=== PATIENT | male | born 1990 | race Caucasian/White ===

== ENCOUNTER 2025-02-08 08:59 | Emergency (ER) | payer OTHER, SELFPAY ==
[2025-02-08 09:13] VITALS: BP 168/128; PULSE 108; RESP 32; TEMP 36.6; O2SAT 94; BMI 48.8
--- NOTE | 2025-02-08 09:30 | CRLHL7_ITS ---
For Patients: As a result of the Century Cures Act, medical imaging exams and procedure reports are released immediately into your electronic medical record. You may view this report before your referring provider. If you have questions, please contact your health care provider. INDICATION: Groin infection, evaluate for abdominal wall cellulitis or abscess. TECHNIQUE: Multiplanar CT examination of the abdomen and pelvis was performed after the administration of 150 mL Isovue 370 intravenous contrast. COMPARISON: None. FINDINGS: Limited evaluation due to photopenic artifact from patient body habitus. Lower chest: No focal consolidation. Cardiomegaly. No large pneumothorax. Small right pleural effusion. Subsegmental dependent atelectasis. Mild pulmonary vascular congestion and interstitial edema. Liver: Probable hepatic steatosis. Hepatomegaly. Gallbladder: Unremarkable. Biliary: Unremarkable. Pancreas: Within normal limits. Spleen: Unremarkable. Adrenal glands: Unremarkable. Renal/ureters/bladder: Normal in size and symmetrically enhancing. No obstructive uropathy. No hydronephrosis or obstructive urinary calculi. No suspicious renal masses. The ureters appear unremarkable. The bladder is within normal limits. Pelvis: Unremarkable prostate. Gastrointestinal: No bowel wall thickening or bowel obstruction. Normal appendix. No significant colonic diverticulosis. Vasculature: No aortic aneurysm. The portal vein remains patent. No significant atherosclerotic calcifications. Lymph nodes: Prominent bilateral inguinal lymph nodes appear morphologically normal, likely reactive. Peritoneum: No free fluid or pneumoperitoneum. No drainable fluid collections. Abdominal wall/soft tissues: Moderate diffuse subcutaneous fat stranding without loculated drainable fluid collections identified to suggest abdominal wall abscess. No subcutaneous emphysema. Bones: No acute osseous abnormalities. Multilevel degenerative changes of the visualized thoracolumbar spine. IMPRESSION: Limited evaluation due to patient body habitus. 1. Moderate diffuse subcutaneous fat stranding involving the anterior abdominal wall, nonspecific but compatible with cellulitis. 2. No loculated fluid collections to suggest abdominal wall abscess. No subcutaneous emphysema suggestive of Sebas`s gangrene. 3. Cardiomegaly with mild pulmonary edema and a small right-sided pleural effusion. 4. Diffuse hepatic steatosis and hepatomegaly. Please note that all CT scans at this facility use dose modulation, iterative reconstruction, and/or weight-based dosing when appropriate to reduce radiation dose to as low as reasonably achievable. Dictated by Jamarcus Souza MD @ 02/08/2025 11:39:26 AM (Electronically Signed)
--- OUTSIDE RECORDS SUMMARY | 2025-02-08 09:56 | XMS_ITS | Clinical Summary ---
Author Organization [employer] [facility] Address [address] [place] [address] Care Team Providers Care Solution Engineer Name Role Phone , [facility] Unavailable [phone] Pcp, No Primary Care Provider Unavailabl e Allergies No known active allergies Medications Blood Pressure Monitor (BLOOD PRESSURE KIT)Indications:Angel rderline systolic HTN 1 Device 0 06/02/2013 Active Active Problems Problem Noted Date Diagnosed Date Hypertension 06/28/2013 Adult BMI 45.0-49.9 kg/sq m 04/27/2013 Tobacco dependence 04/27/2013 Borderline systolic HTN 04/27/2013 Asperger's disorder 03/18/2011 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) 12/15/19 07 Posttraumatic stress disorder 12/15/2006 Immunizations Immunization Administration Dates Next Due DTaP 05/24/1997,07/17/1993,06/17/1992 ,04/19/1992,02/09/1992 Hepatitis B (Peds) 06/17/1992,04/19/1992, 992 MMR 05/24/1997,04/14/1993 Oral Polio Vaccine 02/14/1997,11/24/1996, 993,04/17/1992 Tdap 01/23/2016,11/19/2004 Varicella Vaccine 11/19/2004,11/19/2004 Social History Tobacco Use Types Packs/Day Years Used Date Smoking Tobacco: Some Days Smokeless Tobacco: Never Comments:Occasionally with f riends Alcohol Use Standard Drinks/Week Comments No 0 (1 standard drink = 0.6 oz pur e alcohol) Sex and Gender Information Value Date Recorded Sex Assigned at Not on file Legal Sex Male 7:07 AM [employer] Gender Identity Not on file Sexual Orientation Not on file Obstetrics History Last Filed Vital Signs Vital Sign Reading Time Taken Comments Blood Pressure 178/104 01/23/2016 1:37 PM CDT Pulse 72 01/23/2016 1:37 PM CDT Temperature 36.3 C (97.4 F) 07/26/2013 9:11 AM CDT Respiratory Rate 22 07/26/2013 9:11 AM CDT Oxygen Saturation - - Inhaled Oxygen Concentration - - Weight 128.6 kg (283 lb 9.6 oz) 01/23/2016 1:37 PM CDT Height 188 cm (6' 2.02) 01/23/2016 1:37 PM CDT Body Mass Index 36.4 01/23/2016 1:37 PM CDT Plan of Treatment Health Maintenance Due Date Last Done Comments HIV for age 15-65 2006 Hepatitis C screening for age 18-79 2009 Pneumococcal series for age 6-49 (1 of 2 - PCV) 2010 BMI (ht and wt on same day) for age 18+ 01/22/2017 01/23/2016 Depression screening for age 12+ 01/22/2017 01/23/20 16 COVID-19 vaccine series ( season) 2024 12/30/2021, 04/09/2021, 03/19/2021 Influenza Vaccine (Season Ended) 2025 Tetanus booster 01/22/2026 01/23/2016, 11/19/2004 Tdap Completed 01/23/2016, 11/19/2004 Goals Goal Patient Goal Type Associated Problems Recent Progress Patient-Stated? Author BLOOD PRESSURE - MAINTAINS BP less than 140/90 Blood Pressure No Mark Madrid MD Insurance [facility] Care Teams Solution Engineer Relationship Specialty Start Date End Date Pcp, No . PCP - General 01/07/24 , [facility] [address] [place] [address] 12/04/14
--- OUTSIDE RECORDS SUMMARY | 2025-02-08 09:56 | XMS_ITS | CCD ---
Author Organization Unknown Care Team Providers Care Line Appliance Assembler Name Role Phone [employer] Controller, [place] Primary Care Provider Unava ilable Unavailable Chronic Care Management Unavaila ble Summary Purpose DataExchange Insurance Providers Payer name Policy type / Coverage type Covered green party ID Effective Begin Date Effective End Date [facility] Commercial Insurance [id number] Unkn own [facility] Commercial Insurance [id number] Unkn own Family History Family History data not found Medication Administered No Medication Administered data Reason For Visit No Reason For Visit data
[2025-02-08 10:04] LABS: Lactate Sepsis w/Reflex* 1.5 mmol/L (0.5-1.9)
[2025-02-08 10:08] LABS: Basophils Percent Auto 0.2 % (0.0-3.0); Eosinophils Percent Auto 0.7 % (0.0-7.0); Hematocrit 45.6 % (37.0-53.0); Hemoglobin* 14.3 gm/dL (13.5-17.5); Immature Granulocytes Pct Auto 0.7 %; Lymphocytes Percent Auto 18.3 % (20-44); Mean Corpuscular HGB Conc 31 gm/dL (32-36); Mean Corpuscular Hemoglobin 26 pg (26-34); Mean Corpuscular Volume 81 fL (80-100); Monocytes Percent Auto 7.9 % (0.0-11.0); Neutrophils Percent Auto 72.2 % (42.0-72.0); Platelet Count* 320 K/uL (140-440); RDW Coefficient of Variation % 14.5 % (11.5-15.5); Red Blood Count 5.61 m/uL (4.30-5.90); White Blood Count* 13.28 K/uL (4.50-11.00)
[2025-02-08 10:13] LABS: Slide Review Reflex No
[2025-02-08 10:18] LABS: Chloride* 103 mmol/L (96-114); Sodium* 137 mmol/L (135-149)
[2025-02-08 10:22] LABS: Anion Gap 10 mEq/L (7-15); Blood Urea Nitrogen* 23 mg/dL (5-24); Calcium* 8.8 mg/dL (8.4-10.6); Carbon Dioxide* 24 mmol/L (20-32); Est. Creatinine Clearance* 122.16; Estimated Glomerular Filt Rate 102 ml/min; Glucose* 185 mg/dL (60-115)
--- NOTE | 2025-02-08 10:43 | ED.GENADULT ---
HPI - General Adult General Date Seen: 02/08/25 Chief complaint: Skin/Abscess/Foreign Body Stated complaint: Bacterial infection, possible abscess near crotch Time Seen by Provider: 02/08/25 09:11 History of Present Illness HPI narrative: Patient is a 34-year-old man with possible infection in his lower abdomen, here today with his brother for evaluation. He is significantly overweight, has a large pannus. They have noted erythema and some pain in the fold of his abdominal pannus for about a month, his brother says they been using an antibacterial spray on it as well as hydrogen peroxide. However, it has not gotten better in fact they feel like the area is more swollen. His brother was concerned about possible bacterial infection or abscess. He has not run fevers. Has not otherwise felt ill, no chills, nausea vomiting. He also feels that his urine is kind of orangish and smells different, no dysuria frequency or urgency. No significant general health history aside from obesity. Related Data Previous Rx's ?Medication ?Instructions ?Recorded fluconazole 100 mg tablet 100 mg PO DAILY #20 tabs 02/08/25 (Diflucan) Allergies Allergy/AdvReac Type Severity Reaction Status Date / Time No Known Drug Allergies Allergy Verified 02/08/25 09:10 Review of Systems Status of ROS: Reports: 10 or more systems reviewed and unremarkable except as noted in History and below [facility] Social History Smoking Status: Never smoker Non-prescribed substance use: denies use Exam Narrative: Exam Narrative: Vital signs reviewed In general, alert, nontoxic young man. Head: Normocephalic, atraumatic. Eyes: Sclera clear. Pupils equal and reactive. ENT: Mucous membranes moist. Neck: Supple without adenopathy. Heart: Regular rate and rhythm without murmur. Lungs: Clear. No increased work of breathing, crackles or wheezes. Abdomen: The visualized abdomen shows possibly mild faint erythema on left half of the abdomen, there is no significant warmth, no obvious tenderness or fluctuance in this area. Exam is significantly limited by body habitus. In the left lower abdominal crease, there is erythema, tissue is little bit macerated, no obvious abscess although exam again is significantly limited. Extremities: Well perfused, pulses intact. No significant edema. Neurologic: Alert, conversant. Speech fluent, face symmetric. Moves all extremities equally. Skin: Warm, dry well perfused. Affect: Normal. Const: Vital Signs, click to edit/add: Vital Signs - 24 hr 02/08/25 09:13 02/08/25 12:30 Temperature 97.9 F 97.9 F Pulse Rate [Pulse Oximeter] 108 H 89 Respiratory Rate 32 H 26 H Blood Pressure [Ri ght Upper Arm] 168/128 H 124/88 Pulse Oximetry 94 94 Oxygen Delivery Me thod Room Air Room Air Course Course ED Course: Overall, I suspect that this is a combination of candidiasis with some superimposed bacterial infection. Because of how limited I feel his exam is I do think CT scan is warranted to look for abscess or more significant cellulitis, I am going to do some basic labs as well. He is certainly not toxic in appearance. Labs are reviewed, notable for white blood cell count of 13.3, 72% neutrophils. Metabolic panel is normal, CRP is mildly elevated at 4 procalcitonin and lactate are both normal. Urinalysis is negative. I reviewed his CT scan, I do not see evidence of an abscess, radiology read is reviewed as well, they note some diffuse moderate stranding in the abdominal wall consistent with cellulitis but no drainable fluid collections and no other acute findings. Overall, I do not see indication for admission. Vital signs were repeated, he has no fever, heart rate is now 89, blood pressure 124/88. He remains mildly tachypneic but I suspect that this is baseline for him related to his size. I did give him a dose of Rocephin here, I think we can send him home on oral antibiotics. I did talk with wound clinic about how to best manage the underside of his pannus. They recommended InterDry so that was placed here. Discussed with him that that can be purchased on [employer], alternatively as recommended by wound clinic he can use a pillowcase under his pannus, and simply remove it and place a dry 1 as it becomes damp. Reviewed with the patient and his brother that without helping to control moisture in this area it will be difficult for this to heal. I did prescribe Diflucan for 10 days as I feel fairly sure that there is underlying candidal infection here as well. Reviewed reasons to return, if he has significant worsening of the redness on his stomach if he has new symptoms such as fever, shaking chills, weakness or other worsening, return to the ER right away. Otherwise, if not improving at all over the next week, follow-up with primary care. Keflex prescribed from [facility] to the pharmacy. Vital Signs Vital signs: Initial Vital Signs Temperature 97.9 F 02/08/25 09:13 Temperature Source Temporal Artery Scan 02/08/25 09:13 Pulse Rate 108 H 02/08/25 09:13 Respiratory Rate 32 H 02/08/25 09:13 Blood Pressure 168/128 H 02/08/25 09:13 Blood Pressure Mean 141 H 02/08/25 09:13 Blood Pressure Position Sitting 02/08/25 09:13 Pulse Oximetry 94 02/08/25 09:13 Oxygen Delivery Method Room Air 02/08/25 09:13 Vital Signs Temperature 97.9 F 02/08/25 09:13 Pulse Rate 108 H 02/08/25 09:13 Respiratory Rate 32 H 02/08/25 09:13 Blood Pressure 168/128 H 02/08/25 09:13 Pulse Oximetry 94 02/08/25 09:13 Oxygen Delivery Method Room Air 02/08/25 09:13 Temperature 97.9 F 02/08/25 12:30 Pulse Rate 89 02/08/25 12:30 Respiratory Rate 26 H 02/08/25 12:30 Blood Pressure 124/88 02/08/25 12:30 Pulse Oximetry 94 02/08/25 12:30 Oxygen Delivery Method Room Air 02/08/25 12:30 Medications Administered Medications: Discontinued Medications Generic Name Dose Route Start Last Admin Trade Name Freq PRN Reason Stop Dose Admin Sodium Chloride 500 mls @ 500 mls/hr 02/08/25 09:30 02/08/25 11:26 0.9 % Sodium Chloride 500 Ml IV 02/08/25 10:29 Infused .Q1H ONE Infusion Ceftriaxone Sodium 1 gm/ 100 mls @ 200 mls/hr 02/08/25 12:15 02/08/25 13:05 Sodium Chloride IVPB 02/08/25 12:16 Infused ONCE ONE Infusion Medical Decision Making Lab Data Labs: Lab Results 02/08/25 02/08/25 Range/Units 09:56 13:02 WBC 13.28 H (4.50-11.00) K/uL RBC 5.61 (4.30-5.90) m/uL Hgb 14.3 (13.5-17.5) gm/dL Hct 45.6 (37.0-53.0) % MCV 81 (80-100) fL MCH 26 (26-34) pg MCHC 31 L (32-36) gm/dL RDW Coeff of Annalee 14.5 (11.5-15.5) % Plt Count 320 (140-440) K/uL Neut % (Auto) 72.2 H (42.0-72.0) % Lymph % (Auto) 18.3 L (20-44) % [place] % (Auto) 7.9 (0.0-11.0) % Eos % (Auto) 0.7 (0.0-7.0) % Baso % (Auto) 0.2 (0.0-3.0) % Neut # (Auto) 9.60 H (1.7-7.0) K/uL Lymph # (Auto) 2.40 (0.90-2.90) K/uL [place] # (Auto) 1.00 H (0.00-0.90) K/UL Eos # (Auto) 0.10 (0.00-0.50) K/uL Baso # (Auto) 0.00 (0.00-0.30) K/uL Abs Immat Gran (auto) 0.10 (0.00-0.30) K/uL Imm/Tot Granulo (auto) 0.7 % Sodium 137 (135-149) mmol/L Potassium 4.0 (3.6-5.1) mmol/L Chloride 103 (96-114) mmol/L Carbon Dioxide 24 (20-32) mmol/L Anion Gap 10 (7-15) mEq/L BUN 23 (5-24) mg/dL Creatinine 1.0 (0.5-1.5) mg/dL Estimated Creat Clear 122.16 Estimated GFR 102 ml/min Glucose 185 H (60-115) mg/dL Lactate 1.5 (0.5-1.9) mmol/L Calcium 8.8 (8.4-10.6) mg/dL C-Reactive Protein 4.0 H (0.5-1.0) mg/dL Procalcitonin 0.20 (<0.50) ng/mL Urine Color Yellow (Yellow) Urine Appearance Clear (Clear) Urine pH 6.0 (5.0-8.5) Ur Specific [place] <= 1.005 (1.000-1.030) Urine Protein 1+ A (Negative) Urine Glucose (UA) Negative (Negative) Urine Ketones Negative (Negative) Urine Blood Negative (Negative) Urine Nitrite Negative (Negative) Urine Bilirubin Negative (Negative) Urine Urobilinogen 0.2 (0.2-1.0) Ur Leukocyte Esterase Negative (Negative) Urine RBC 0-2 (0-2) Urine WBC 0-2 (0-5) Ur Squamous Epith Cells Few (None-Few) Urine Bacteria None (None) Discharge Plan Discharge Clinical Impression: Cellulitis Patient Disposition: Home, Self-Care Condition: Stable Instructions: Cellulitis (ED) Additional Instructions: I have prescribed an antibiotic for you to take for skin infection, as well as an anti fungal medication. One important aspect of helping this area to heal will be to keep it clean and dry. The product we used here is called InterDry. This can be purchased on [employer], alternatively if this is not an option, you can use pillowcases underneath your abdomen to help keep this area dry. Take the Keflex (antibiotic) as prescribed. If you are significantly worse, have severe erythema or pain, high fevers, or other significant changes, return to the emergency department at any time. If you do not note any improvement in the next week, follow-up with primary care. Prescriptions: New fluconazole [Diflucan] 100 mg tablet 100 mg PO DAILY Qty: 20 0RF Rx Instructions: take two tablets on day one then one tablet daily Follow Up/Referrals: Provider,Not a Local [Primary Care Provider] - Stand Alone Forms: [employer] Info Instructions
[2025-02-08] MEDS: 0.9 % SODIUM CHLORIDE 500 ML 500 ML IV (10:57)
[2025-02-08] MEDS: cefTRIAXone 1 GM in 0.9 % SODIUM CHLORIDE Mini-bag 100 ML IVPB (12:29)
[2025-02-08 12:30] VITALS: BP 124/88; PULSE 89; RESP 26; TEMP 36.6; O2SAT 94
[2025-02-08 13:08] LABS: Appearance Urine Clear (Clear); Bilirubin Urine Negative (Negative); Blood Urine Negative (Negative); Color Urine Yellow (Yellow); Glucose Urine Negative (Negative); Ketones Urine Negative (Negative); Leukocyte Esterase Urine Negative (Negative); Nitrite Urine Negative (Negative); Protein Urine 1+ (Negative); Specific Gravity Urine <= 1.005 (1.000-1.030); Urobilinogen Urine 0.2 (0.2-1.0)
[2025-02-08 13:32] LABS: RBC Urine 0-2 (0-2); Squamous Epithelial Cell Urine Few (None-Few); WBC Urine 0-2 (0-5)
== END 2025-02-08 14:06 | disposition home or self-care (01) ==
PROVIDERS: Emergency Provider Emergency Medicine
DX: L03.311 Cellulitis of abdominal wall (principal)
CPT/HCPCS: 36415; 74177; 80048; 81001; 83605; 84145; 85025; 86140; 96365; 99284; 99285; J0696; J7030; Q9967

== ENCOUNTER 2025-02-19 10:02 | Emergency (ER) | payer OTHER, SELFPAY ==
--- OUTSIDE RECORDS SUMMARY | 2025-02-19 10:06 | XMS_ITS | Clinical Summary ---
Author Organization [employer] [facility] Address [address] [place] [address] Care Team Providers Care Icing Maker Name Role Phone , [facility] Unavailable [phone] Pcp, No Primary Care Provider Unavailabl [...] on file Legal Sex Male 7:07 AM [employer] Gender Identity Not on file Sexual Orientation [...] Blood Pressure No Mark Madrid MD Insurance [facility] Care Teams Icing Maker Relationship Specialty Start Date End Date Pcp, No . PCP - General 01/07/24 , [facility] [address] [place] [address] 12/04/14
--- OUTSIDE RECORDS SUMMARY | 2025-02-19 10:06 | XMS_ITS | CCD ---
Author Organization Unknown Care Team Providers Care Manufacturing Process Technician Name Role Phone [employer] Associate Professor, [place] Primary Care Provider Unava ilable Unavailable Chronic Care Management Unavaila ble Summary Purpose DataExchange Insurance Providers Payer name Policy type / Coverage type Covered alliance party ID Effective Begin Date Effective End Date [facility] Commercial Insurance [id number] Unkn own [facility] Commercial Insurance [id number] Unkn own Family History Family History data not found Medication Administered No Medication Administered data Reason For Visit No Reason For Visit data
[2025-02-19 10:13] VITALS: BP 155/116; PULSE 108; RESP 20; TEMP 36; O2SAT 94; BMI 46.9
--- NOTE | 2025-02-19 10:14 | ED_ITS ---
HPI - General Adult General Chief complaint: Skin/Abscess/Foreign Body Stated complaint: degradation- having effects from previous diagnose Time Seen by Provider: 02/19/25 10:08 History of Present Illness HPI narrative: Pt here for eval of worsening cellulitis, yeast infection in groin, genitals. Has 8 days left of antibacterial med. Has been secreting fluid around genitals, reports severe pain around genitals, has difficulty sitting. Has been showering twice a day, taking motrin, staying hydration. 34-year-old man presenting to the emergency department Given cleansing a couple of times a week with hydrogen peroxide. Has been trying to dry out after showers. Now showering twice a day. No noted fever Was improved for about a week and then seemed to get worse again. Says now he is sticking to himself. Apparently marked increase in scrotal edema When seen here 11 days ago diagnosed with cellulitis and intertrigo. Did have CT imaging that did not show any abscess but did have fat stranding consistent with cellulitis. was initiated on fluconazole for 10 day course. Was also given InterDry and Keflex. Brother reports that InterDry had been used intermittently up until 2 days ago when discontinued. Maybe was drying too much in creating other crac miranda? Then would be sensitive to sweating. Related Data Previous Rx's ?Medication ?Instructions ?Recorded fluconazole 100 mg tablet 100 mg PO DAILY #20 tabs 02/08/25 (Diflucan) nystatin 100,000 unit/gram topical 1 applic topical BID #60 grams 02/19/25 powder Allergies Allergy/AdvReac Type Severity Reaction Status Date / Time No Known Drug Allergies Allergy Verified 02/19/25 10:19 Review of Systems Status of ROS: Reports: 6 or more systems reviewed and unremarkable except as noted in History and below [facility] Social History Smoking Status: Never smoker How often do you have a drink containing alcohol: monthly or less AUDIT-C Alcohol total score: 1 Non-prescribed substance use: denies use Exam Narrative: Exam Narrative: Pleasant. Fully alert. Obese. Labored breathing consistent with body habitus I think. Mild dependent lower extremity edema. Abdomen is morbidly obese with induration and erythema with mild calor across the lower abdomen and increasingly moderate erythema under the pannus and in other folds. Marked edema of the scrotal tissues. Light skin breakdown in the inguinal folds bilaterally left greater than right. Generalized moisture in the skin folds. Odor more noted in the left inguinal area Const: Vital Signs, click to edit/add: Vital Signs - 24 hr 02/19/25 10:13 Temperature 96.8 F L Pulse Rate [Pulse Oximeter] 108 H Respiratory Rate 20 Blood Pressure [Ri ght Upper Arm] 155/116 H Pulse Oximetry 94 Oxygen Delivery Me thod Room Air Documenting provider has reviewed patient's vital signs: yes Course Vital Signs Vital signs: Initial Vital Signs Temperature 96.8 F L 02/19/25 10:13 Temperature Source Temporal Artery Scan 02/19/25 10:13 Pulse Rate 108 H 02/19/25 10:13 Pulse Rhythm Regular 02/19/25 10:13 Respiratory Rate 20 02/19/25 10:13 Blood Pressure 155/116 H 02/19/25 10:13 Blood Pressure Mean 129 H 02/19/25 10:13 Blood Pressure Position Supine 02/19/25 10:13 Pulse Oximetry 94 02/19/25 10:13 Oxygen Delivery Method Room Air 02/19/25 10:13 Vital Signs Temperature 96.8 F L 02/19/25 10:13 Pulse Rate 108 H 02/19/25 10:13 Respiratory Rate 20 02/19/25 10:13 Blood Pressure 155/116 H 02/19/25 10:13 Pulse Oximetry 94 02/19/25 10:13 Oxygen Delivery Method Room Air 02/19/25 10:13 Temperature 96.8 F L 02/19/25 10:13 Pulse Rate 108 H 02/19/25 10:13 Respiratory Rate 20 02/19/25 10:13 Blood Pressure 155/116 H 02/19/25 10:13 Pulse Oximetry 94 02/19/25 10:13 Oxygen Delivery Method Room Air 02/19/25 10:13 Medical Decision Making MDM Narrative Medical decision making narrative: Appears to have worsening of cellulitis and intertrigo. Mild tachycardia and labored breathing I think is chronic. No fever. Given difficulty of exam and marked increase in edema and pain as described would be prudent to look again for any evidence of abscess collection or subcutaneous air. Most critical thing those going to be keeping this area dry. Compare labs from prior visit. I do not see any discrete fluid collection or subcutaneous air on my independent review CT imaging the pelvis Radiology over-read below TECHNIQUE: CT pelvis without contrast. COMPARISON: CT of the abdomen and pelvis from February 08, 2025.. FINDINGS: Visualized bowel loops are unremarkable. Average colonic stool volume where visualized. Appendix is within normal limits where visualized. Bladder is unremarkable. Prostate unremarkable. Visualized vasculature is unremarkable. Diffuse moderate subcutaneous edema is noted throughout the visualized soft tissues. No focal drainable fluid collections. Cutaneous thickening is noted. Significant scrotal fluid and edema. Bilateral hydroceles. The osseous structures are unremarkable. IMPRESSION: Significant scrotal fluid and edema with bilateral hydroceles. Diffuse subcutaneous edema to moderate degree. No focal drainable fluid collections within the subcutaneous soft tissues. Cutaneous thickening is noted. Please note that all CT scans at this facility use dose modulation, iterative reconstruction, and/or weight-based dosing when appropriate to reduce radiation dose to as low as reasonably achievable. Dictated by Byron Hernandez MD @ 02/19/2025 1:21:29 PM Labs are similar to prior. Did discuss again with wound care clinic staff. No further recommendations. Needs to return to use of interdry and avoid use of hydrogen peroxide. Is continuing antibiotic course. Perhaps addition of powdered anti fungal would be beneficial. Not want to continue oral fluconazole long-term. Has built up enough subcutaneous fluid this is going to be difficult to manage. As before, critical to keep these areas dry. It sounds like that InterDry was very effective. Please use regularly. Can also place further towels or pillow cases to further soak up sweat. I would avoid regular use of hydrogen peroxide as you have some skin erosion and hydrogen peroxide tends to delay wound healing. Keep area clean otherwise with gentle soap and water. Assistance is likely needed. Consider placing antifungal powder. I sent in a prescription. Otherwise amita nue current medications. Watch for fever, marked increase in pain or swelling or redness -- reasons to return I would schedule a recheck in clinic if possible in 7-10 days. Medical Records Medical records reviewed: Yes I reviewed the patient's medical records Lab Data Lab results reviewed: Yes I reviewed the patient's lab results Labs: Lab Results 02/19/25 02/19/25 Range/Units 10:59 11:23 WBC 14.39 H (4.50-11.00) K/uL RBC 5.44 (4.30-5.90) m/uL Hgb 13.2 L (13.5-17.5) gm/dL Hct 43.5 (37.0-53.0) % MCV 80 (80-100) fL MCH 24 L (26-34) pg MCHC 30 L (32-36) gm/dL RDW Coeff of Annalee 15.1 (11.5-15.5) % Plt Count 385 (140-440) K/uL Neut % (Auto) 71.9 (42.0-72.0) % Lymph % (Auto) 16.7 L (20-44) % Arthur % (Auto) 10.1 (0.0-11.0) % Eos % (Auto) 0.6 (0.0-7.0) % Baso % (Auto) 0.3 (0.0-3.0) % Neut # (Auto) 10.30 H (1.7-7.0) K/uL Lymph # (Auto) 2.40 (0.90-2.90) K/uL Arthur # (Auto) 1.50 H (0.00-0.90) K/UL Eos # (Auto) 0.10 (0.00-0.50) K/uL Baso # (Auto) 0.00 (0.00-0.30) K/uL Abs Immat Gran (auto) 0.10 (0.00-0.30) K/uL Imm/Tot Granulo (auto) 0.4 % VBG pH 7.427 (7.32-7.43) VBG pCO2 36 L (40-50) mmHG VBG pO2 56.0 H (25-47) mmHG VBG HCO3 24 (21-28) mmol/L Sodium 134 L (135-149) mmol/L Potassium 4.1 (3.6-5.1) mmol/L Chloride 103 (96-114) mmol/L Carbon Dioxide 22 (20-32) mmol/L Anion Gap 9 (7-15) mEq/L BUN 25 H (5-24) mg/dL Creatinine 1.0 (0.5-1.5) mg/dL Estimated Creat Clear 122.16 Estimated GFR 102 ml/min Glucose 149 H (60-115) mg/dL Lactate 1.4 (0.5-1.9) mmol/L Calcium 8.5 (8.4-10.6) mg/dL Total Bilirubin 1.1 (0.1-1.5) mg/dL Direct Bilirubin 0.5 (0.0-0.5) mg/dL AST 38 H (12-35) U/L ALT 42 (4-50) U/L Alkaline Phosphatase 72 (40-150) U/L C-Reactive Protein 5.0 H (0.5-1.0) mg/dL Total Protein 6.0 (6.0-8.3) g/dL Albumin 3.2 L (3.3-5.0) g/dL Procalcitonin 0.18 (<0.50) ng/mL Lab Acknowledgement Test Added Discharge Plan Discharge Clinical Impression: Intertrigo, Cellulitis, Hydrocele of testis, Edema of skin Patient Disposition: Home w/ Parent or Adult Condition: Stable Additional Instructions: As before, critical to keep these areas dry. It sounds like that InterDry was very effective. Please use regularly. Can also place further towels or pillow cases to further soak up sweat. I would avoid regular use of hydrogen peroxide as you have some skin erosion and hydrogen peroxide tends to delay wound healing. Keep area clean otherwise with gentle soap and water. Assistance is likely needed. Consider placing antifungal powder. I sent in a prescription. Otherwise continue current medications. Watch for fever, marked increase in pain or swelling or redness -- reasons to return I would schedule a recheck in clinic if possible in 7-10 days. Prescriptions: New nystatin 100,000 unit/gram powder 1 applic topical BID Qty: 60 1RF No Action fluconazole [Diflucan] 100 mg tablet 100 mg PO DAILY Qty: 20 0RF Rx Instructions: take two tablets on day one then one tablet daily Follow Up/Referrals: Provider,Not a Local [Primary Care Provider] - Stand Alone Forms: Cell[employer] Info Instructions
--- OUTSIDE RECORDS SUMMARY | 2025-02-19 11:00 | XMS_ITS | Clinical Summary ---
Author Organization [facility] Address [address] [place] [id number] Care Team Providers Care Expeller Worker Name Role Phone , [facility] Unavailable [phone] Pcp, No Primary Care Provider Unavailabl [...] on file Legal Sex Male 7:07 AM [employer]ERRICK [employer] Gender Identity Not on file Sexual Orientation [...] Blood Pressure No Mark Madrid MD Insurance [facility] Care Teams Expeller Worker Relationship Specialty Start Date End Date Pcp, No . PCP - General 01/07/24 , [facility] [address] [place] [address] 12/04/14
--- OUTSIDE RECORDS SUMMARY | 2025-02-19 11:00 | XMS_ITS | CCD ---
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
--- OUTSIDE RECORDS SUMMARY | 2025-02-19 11:00 | XMS_ITS | CCD ---
Author Organization Unknown Care Team Providers Care Campaign Consultant Name Role Phone Storage Consultant, [place] Primary Care Provider Unava ilable Unavailable Chronic Care Management Unavaila ble Summary Purpose DataExchange Insurance Providers Payer name Policy type / Coverage type Covered green party ID Effective Begin Date Effective End Date [facility] Commercial Insurance [id number] Unkn own [facility] Commercial Insurance [id number] Unkn own Family History Family History data not found Medication Administered No Medication Administered data Reason For Visit No Reason For Visit data
[2025-02-19 11:03] LABS: HCO3 VBG 24 mmol/L (21-28); Lactate* 1.4 mmol/L (0.5-1.9); PCO2 VBG 36 mmHG (40-50); pH VBG 7.427 (7.32-7.43)
[2025-02-19 11:08] LABS: Basophils Percent Auto 0.3 % (0.0-3.0); Eosinophils Percent Auto 0.6 % (0.0-7.0); Hematocrit 43.5 % (37.0-53.0); Hemoglobin* 13.2 gm/dL (13.5-17.5); Immature Granulocytes Pct Auto 0.4 %; Lymphocytes Percent Auto 16.7 % (20-44); Mean Corpuscular HGB Conc 30 gm/dL (32-36); Mean Corpuscular Hemoglobin 24 pg (26-34); Mean Corpuscular Volume 80 fL (80-100); Monocytes Percent Auto 10.1 % (0.0-11.0); Neutrophils Percent Auto 71.9 % (42.0-72.0); Platelet Count* 385 K/uL (140-440); RDW Coefficient of Variation % 15.1 % (11.5-15.5); Red Blood Count 5.44 m/uL (4.30-5.90); White Blood Count* 14.39 K/uL (4.50-11.00)
[2025-02-19 11:20] LABS: Slide Review Reflex No
[2025-02-19 11:22] LABS: Albumin* 3.2 g/dL (3.3-5.0); Chloride* 103 mmol/L (96-114); Sodium* 134 mmol/L (135-149)
[2025-02-19 11:23] LABS: Potassium* 4.1 mmol/L (3.6-5.1)
[2025-02-19 11:25] LABS: Alanine Aminotransferase* 42 U/L (4-50); Alkaline Phosphatase* 72 U/L (40-150); Anion Gap 9 mEq/L (7-15); Aspartate Amino Transferase* 38 U/L (12-35); Bilirubin Direct* 0.5 mg/dL (0.0-0.5); Bilirubin Total* 1.1 mg/dL (0.1-1.5); Blood Urea Nitrogen* 25 mg/dL (5-24); Carbon Dioxide* 22 mmol/L (20-32); Est. Creatinine Clearance* 122.16; Estimated Glomerular Filt Rate 102 ml/min
[2025-02-19 11:26] LABS: Calcium* 8.5 mg/dL (8.4-10.6); Glucose* 149 mg/dL (60-115)
--- NOTE | 2025-02-19 12:03 | CRLHL7_ITS ---
For Patients: As a result of the Cures Act, medical imaging exams and procedure reports are released immediately into your electronic medical record. You may view this report before your referring provider. If you have questions, please contact your health care provider. INDICATION: LOOKING FOR ANY AREAS OF FLUID COLLECTION, GROIN INFECTION, CELLULITIS. TECHNIQUE: CT pelvis without contrast. COMPARISON: CT of the abdomen and pelvis from February 08, 2025.. FINDINGS: Visualized bowel loops are unremarkable. Average colonic stool volume where visualized. Appendix is within normal limits where visualized. Bladder is unremarkable. Prostate unremarkable. Visualized vasculature is unremarkable. Diffuse moderate subcutaneous edema is noted throughout the visualized soft tissues. No focal drainable fluid collections. Cutaneous thickening is noted. Significant scrotal fluid and edema. Bilateral hydroceles. The osseous structures are unremarkable. IMPRESSION: Significant scrotal fluid and edema with bilateral hydroceles. Diffuse subcutaneous edema to moderate degree. No focal drainable fluid collections within the subcutaneous soft tissues. Cutaneous thickening is noted. Please note that all CT scans at this facility use dose modulation, iterative reconstruction, and/or weight-based dosing when appropriate to reduce radiation dose to as low as reasonably achievable. Dictated by Byron Hernandez MD @ 02/19/2025 1:21:29 PM (Electronically Signed)
[2025-02-19 12:18] LABS: Procalcitonin* 0.18 ng/mL (<0.50)
== END 2025-02-19 13:49 | disposition home or self-care (01) ==
PROVIDERS: Emergency Provider Family Medicine
DX: L30.4 Erythema intertrigo (principal); L03.311 Cellulitis of abdominal wall; R60.0 Localized edema; N43.3 Hydrocele, unspecified
CPT/HCPCS: 36415; 72192; 80048; 80076; 82803; 83605; 84145; 85025; 86140; 99284

== ENCOUNTER 2025-02-26 18:53 | Outpatient (CLI) | payer OTHER, SELFPAY | END 2025-02-26 18:54 | disposition home or self-care (01) | LOC: AMB 02-28 10:16 | PROVIDERS: Visit Provider Family Medicine | DX: I46.9 Cardiac arrest, cause unspecified (principal) | CPT/HCPCS: A0429 ==